=== PATIENT | female | born 1955 ===

== ENCOUNTER 2021-08-01 12:35 | Outpatient (CLI) | payer OTHER | END 2021-08-01 12:36 | disposition short-term general hospital (02) | LOC: EMS 12:35 | DX: M54.50 Low back pain, unspecified (principal); G89.29 Other chronic pain; M79.10 Myalgia, unspecified site; K59.03 Drug induced constipation; T40.2X5A Adverse effect of other opioids, initial encounter | CPT/HCPCS: A0425; A0429 ==